=== PATIENT | female | born 1940 | race Caucasian/White ===

== ENCOUNTER 2019-03-14 19:42 | Observation (INO) ==
[2019-03-14] MEDS ORDERED: DUONEB (A & A) INH ONE (20:04)
[2019-03-14] MEDS ORDERED: LASIX IV ONE (20:05)
[2019-03-14] MEDS ORDERED: NITROGLYCERIN TOP ONE (20:08)
--- NOTE | 2019-03-14 20:29 | Diag Imaging Result Doc PS360 ---
EXAM: CHEST-PORTABLE HISTORY: pe TECHNIQUE: Chest single view COMPARISON: 01/07/2015 FINDINGS: Poor inspiratory effort. Heart is mildly enlarged. There are multiple calcified mediastinal and hilar lymph nodes similar to the prior exam. No consolidation. No pleural effusions identified. IMPRESSION: Mildly prominent heart Electronically signed by Christiano Malcolm 03/14/2019 8:27 PM
[2019-03-14 20:36] LABS: BASO# 0.04 X1000 (0.0-0.2); BASO% 0.4 % (0.0-0.8); EOS# 0.25 X1000 (0.0-0.7); EOS% 2.4 % (0.0-10.0); HEMATOCRIT 43.1 % (37.0-47.0); HEMOGLOBIN 14.4 g/dL (12.0-16.0); IMM GRAN# 0.01 X1000 (0.0-0.04); IMM GRAN% 0.1 % (0.0-0.5); LYMPH# 1.09 X1000 (1.2-3.4); LYMPH% 10.6 % (20.5-51.1); MCH 31.5 PG (27-31); MCHC 33.4 g/dL (33-37); MCV 94.3 FL (81-99); MONO# 0.83 X1000 (0.11-0.59); MONO% 8.1 % (1.7-9.3); NEUT# 8.08 X1000 (1.4-6.5); NEUT% 78.4 % (42.2-75.2); PLT 165 X1000 (130-400); RBC 4.57 XMIL (4.2-5.4); RDW 14.4 % (11.5-14.5)
[2019-03-14 20:58] LABS: AGAP 11; ALBUMIN 4.3 g/dL (3.5-5.0); ALKALINE PHOSPHATASE 63 U/L (32-104); BUN 14 mg/dL (8-22); CALCIUM 8.4 mg/dL (8.8-10.2); CHLORIDE 107 mmol/L (98-107); COSMO 286; CREATININE 0.5 mg/dL (0.5-0.9); ESTIMATED GFR > 60; GLUCOSE 148 mg/dL (70-104); GOT 26 U/L (10-30); GPT 24 U/L (10-36); MAGNESIUM 1.8 mg/dL (1.5-2.7); POTASSIUM 4.3 mmol/L (3.5-5.1); SODIUM 142 mmol/L (136-145); TCO2 24 mmol/L (25-35); TOTAL PROTEIN 7.7 g/dL (6.3-8.3)
[2019-03-14] MEDS ORDERED: ATIVAN PO ONE (21:22)
--- NOTE | 2019-03-14 22:21 | EKG Report ---
Test Performed on : 03/14/2019 7:52:52 PM Test Reason : sob Blood Pressure : / mmHG Vent. Rate : 107 BPM Atrial Rate : 107 BPM P-R Int : 000 ms QRS Dur : 090 ms QT Int : 386 ms P-R-T Axes : 000 056 064 degrees QTc Int : 515 ms Atrial fibrillation. with rapid ventricular response. Abnormal ECG When compared with ECG of 13-OCT-2013 13:45, Atrial fibrillation. has replaced Sinus rhythm. Vent. rate has increased BY 41 BPM Nonspecific T wave abnormality now evident in Lateral leads QT has lengthened Unconfirmed Result
[2019-03-14] MEDS ORDERED: BENADRYL IV ONE (23:21)
[2019-03-14 23:26] LABS: BILIRUBIN URINE NEGATIVE (NEGATIVE); BLOOD URINE NEGATIVE (NEGATIVE); CLARITY CLEAR (CLEAR); COLOR YELLOW; GLUCOSE URINE NEGATIVE (NEGATIVE); KETONE URINE NEGATIVE (NEGATIVE); LEUKOCYTES URINE NEGATIVE (NEGATIVE); NITRITE URINE NEGATIVE (NEGATIVE); PROTEIN URINE NEGATIVE (NEGATIVE); URINE BACTERIA NEGATIVE /HFP; URINE EPITHELIAL CELLS <10 /HPF (<10); URINE RBC <10 /HPF (<10); URINE SOURCE CATH; URINE WBC <10 /HPF (<10); UROBILINOGEN URINE NORMAL
--- NOTE | 2019-03-15 00:38 | EKG Report ---
Test Performed on : 03/14/2019 11:08:16 PM Test Reason : repeat Blood Pressure : / mmHG Vent. Rate : 101 BPM Atrial Rate : 101 BPM P-R Int : 152 ms QRS Dur : 090 ms QT Int : 384 ms P-R-T Axes : 061 071 074 degrees QTc Int : 497 ms Sinus tachycardia. Otherwise normal ECG When compared with ECG of 14-MAR-2019 19:52, (Unconfirmed) Sinus rhythm. has replaced Atrial fibrillation. Unconfirmed Result
[2019-03-15] MEDS ORDERED: LOVENOX 1 MG/KG SUBQ ONE (01:21)
--- NOTE | 2019-03-15 02:03 | PROVIDER DOCUMENTATION ---
This chart was entered by Mary Beth Olvera Scribe, acting as scribe for Ovidio Cerda MD. HPI-Respiratory General - General Chief Complaint: Shortness of Breath Stated Complaint: SOB Time Seen by Provider: 03/14/19 20:03 Source: patient Allergies/Adverse Reactions: Patient Allergies Allergy/AdvReac Type Severity Reaction Status Date / Time latex Allergy Severe SWELLING Verified 11/15/15 16:43 Sulfa (Sulfonamide Allergy Intermediate ITCHING Verified 11/15/15 16:43 Antibiotics) ciprofloxacin [From Cipro] Allergy Unknown Verified 11/15/15 16:43 ciprofloxacin HCl * Allergy Unknown Verified 11/15/15 16:43 [From Cipro] phenazopyridine HCl * Allergy RASH Verified 11/15/15 16:43 [From Pyridium] Home Medications: Home Medication List Medication Instructions Recorded Confirmed Last Taken Type Alprazolam [Xanax] 0.5 mg PO TID PRN 06/25/14 11/15/15 03/11/15 History Carvedilol [Coreg] 25 mg PO BID 06/25/14 11/15/15 03/11/15 History Duloxetine HCl [Cymbalta] 60 mg PO DAILY 06/25/14 11/15/15 03/11/15 History Esomeprazole Magnesium [Nexium] 40 mg PO DAILY 06/25/14 11/15/15 03/11/15 History Levothyroxine [Synthroid] 100 microgm PO DAILY 06/25/14 11/15/15 03/11/15 History Metformin HCl 500 mg PO BID 06/25/14 11/15/15 03/11/15 History Potassium Chloride Powder Pkt 20 meq PO DAILY 06/25/14 11/15/15 03/11/15 History [Klor-Con Powder Packet] Ropinirole HCl [Requip] 5 mg PO QHS 06/25/14 11/15/15 03/11/15 History Zolpidem [Ambien] 10 mg PO QHS 06/25/14 11/15/15 03/11/15 History Hydralazine [Apresoline] 50 mg PO TID 01/06/15 11/15/15 03/11/15 History Nisoldipine [Sular] 17 mg PO DAILY #0 01/10/15 11/15/15 03/11/15 Rx Hydrocodone/APAP 10 mg/325 mg 10 mg PO Q4H PRN 03/11/15 11/15/15 03/11/15 15:00 History [[place]-10] Na Phos,M-B/Na Phos,Di-Ba [Fleet 133 ml PA HS PRN PRN #3 enema 03/11/15 11/15/15 Unknown Rx Enema] Nitrofurantoin Monohyd/M-Cryst 100 mg PO BID #10 capsule 03/11/15 11/15/15 Unknown Rx [Macrobid 100 mg Capsule] Polyethylene Glycol 3350 [Miralax] 527 gm PO DAILY #1 powder 03/11/15 11/15/15 Unknown Rx - History of Present Illness-Resp Nature of Presenting Problem: 78 yof c/o sob x 2.5 hrs. pt was brought to er by son, pt was in [place] since and sym progressively became worse so came to er. pt has no o2, nebulizers at home. pt is on 3 L o2 and 97% sat in er. pt has elv bp 156/105 in er. pt is twitching and jerking in er. pt has hx of 2x cardiac cath (one in [place] and one in [facility]), thyroid disease, dm (takes metformin), and Htn (sular and coreg). pt has no admissions director. pt has no hx of sob but has had pneumonia, most rec in jul 2018. pt is a nonsmoker. denies nvd, and abd pain. Review of Systems - Adult - REVIEW OF SYSTEMS - ADULT Constitutional: reports: see HPI, other (twitching and jerking). denies: chills, fever, fatique Eyes: reports: no symptoms reported Ears, Nose, Mouth & Throat: reports: no symptoms reported Cardiovascular: reports: no symptoms reported. denies: poor circulation, PND, syncope Respiratory: reports: see HPI, shortness of breath, wheezing. denies: cough, excessive sputum production, hemoptysis Gastrointestinal: reports: no symptoms reported. denies: abdominal pain, diarrhea, nausea, vomiting Genitourinary: reports: no symptoms reported Musculoskeletal: reports: no symptoms reported Integumentary: reports: no symptoms reported Neurological: reports: no symptoms reported Psychiatric: reports: no symptoms reported Endocrine: reports: no symptoms reported Hematologic/Lymphatic: reports: no symptoms reported Allergic/Immunologic: reports: no symptoms reported All Other Systems: Reviewed and Negative Past History - Adult - PAST MEDICAL HISTORY-ADULT Review of Records: reports: Old Records Reviewed, Nursing Assessment Review, Medications Reviewed, Social history reviewed & non-contributory. Major Childhood Illnesses: reports: denies history Cardiovascular: reports: HTN Respiratory: reports: denies history Gastrointestinal: reports: denies history Obstetrical/Gynecological: reports: denies history Genitourinary: reports: kidney disease, chronic UTI's Musculoskeletal: reports: denies history Neurological: reports: denies history Endocrine/Immune: reports: Diabetes, thyroid disorder Diabetes controlled by:: PO Meds Other Conditions: reports: other (Renal Disease) - PRIOR SURGERIES/PROCEDURES Surgical/Procedure History: reports: hysterectomy - IMMUNIZATION STATUS Childhood Immunizations: See Nurse Assessment Flu Vaccine: See Nurse Assessment - FAMILY HISTORY Family History: reviewed, not pertinent - SOCIAL HISTORY Smoking: non-smoker Substance Use: none/never Physical Exam-General - PHYSICAL EXAM-ADULT Initial Vital Signs Reviewed: Yes - CONSTITUTIONAL General Appearance: alert, mild distress. negative: lethargic, slow to respond, obtunded - EYES Eyes: PERRL/EOMI, pink conjunctivae - HEAD, EARS, NOSE, MOUTH & THROAT HENMT: normocephalic/atraumatic, moist mucous membranes, normal ENT inspection - NECK Neck: non-tender, full range of motion, supple, normal inspection - RESPIRATORY Respiratory: chest non-tender, no pleuratic chest pain, respiratory distress, accessory muscle use, rales, wheezing (bilat), other (rattling rapid respirations). negative: lungs clear, normal breath sounds, no respiratory distress, no accessory muscle use, decreased breath sounds, stridor, dull on percussion, prolonged expiration, pain on inspiration, decreased rate - CARDIOVASCULAR Cardiovascular: normal peripheral pulses, tachycardia, other (afib rvr). negative: regular rate, rhythm, extra beats, friction rub, irregularly irregular - GASTROINTESTINAL (ABDOMEN) Abdominal Exam: normal bowel sounds, non tender, soft, no organomegaly, no pulsatile mass. negative: abdominal bruit, abnormal bowel sounds, distended - LYMPHATIC Lymphatic: no adenopathy - MUSCULOSKELETAL Back Exam: normal inspection, no CVA tenderness, no vertebral tenderness Extremity: normal range of motion, non-tender, pedal edema (pretibial edema 1+ bilat). negative: normal inspection, no pedal edema, deformity, erythema, pulse deficit Peripheral Pulses: dorsalis-pedis (R): 2+, dorsalis-pedis (L): 2+ - SKIN Integumentary: normal turgor, warm/dry, pallor. negative: normal color, purpura, tenderness, warm - NEUROLOGIC Neurologic: grossly normal, no motor/sensory deficits - PSYCHIATRIC Psych/Mental Status: normal mood/affect, normal thought content, normal thought process, oriented x 3 Progress - PLAN OF CARE/RESULTS Progress/Plan/Lab Results: Vital Signs - 8 hr 03/14/19 19:44 03/14/19 20:15 Temperature 98 F Pulse Rate 110 H 106 H Respiratory Rate 20 23 Blood Pressure 150/65 O2 Sat by Pulse Oximetry 91 L 100 Laboratory Results - last 24 hr 03/14/19 03/14/19 03/14/19 20:20 20:20 20:20 WBC 10.30 RBC 4.57 Hgb 14.4 Hct 43.1 MCV 94.3 MCH 31.5 H MCHC 33.4 RDW Std Deviation 14.4 Plt Count 165 MPV 12.0 H Immature Gran % (Auto) 0.1 Neut % (Auto) 78.4 H Lymph % (Auto) 10.6 L Vance % (Auto) 8.1 Eos % (Auto) 2.4 Baso % (Auto) 0.4 Immature Gran # (Auto) 0.01 Neut # (Auto) 8.08 H Lymph # (Auto) 1.09 L Vance # (Auto) 0.83 H Eos # (Auto) 0.25 Baso # (Auto) 0.04 D-Dimer, Quantitative Sodium Potassium Chloride Carbon Dioxide Anion Gap BUN Creatinine Estimated GFR/1.73 m2 BUN/Creatinine Ratio Glucose Calculated Osmolality Calcium Magnesium Total Bilirubin AST ALT Alkaline Phosphatase Creatine Kinase 64 Troponin T < 0.010 Lvm-Y-Gybmlzidvon Pept Total Protein Albumin Globulin Albumin/Globulin Ratio Urine Source Urine Color Urine Clarity Urine pH Ur Specific [place] Urine Protein Urine Ketones Urine Blood Urine Nitrite Urine Bilirubin Urine Urobilinogen Urine Microscopic RBC Urine WBC Urine Microscopic WBC Ur Epithelial Cells Urine Bacteria Urine Glucose 03/14/19 03/14/19 03/14/19 20:20 20:20 20:20 WBC RBC Hgb Hct MCV MCH MCHC RDW Std Deviation Plt Count MPV Immature Gran % (Auto) Neut % (Auto) Lymph % (Auto) Vance % (Auto) Eos % (Auto) Baso % (Auto) Immature Gran # (Auto) Neut # (Auto) Lymph # (Auto) Vance # (Auto) Eos # (Auto) Baso # (Auto) D-Dimer, Quantitative 1.00 H Sodium 142 Potassium 4.3 Chloride 107 Carbon Dioxide 24 L Anion Gap 11 BUN 14 Creatinine 0.5 Estimated GFR/1.73 m2 > 60 BUN/Creatinine Ratio 28 Glucose 148 H Calculated Osmolality 286 Calcium 8.4 L Magnesium 1.8 Total Bilirubin 0.20 AST 26 ALT 24 Alkaline Phosphatase 63 Creatine Kinase Troponin T Zbt-Q-Jtjeqwookvn Pept 555 H Total Protein 7.7 Albumin 4.3 Globulin 3.0 Albumin/Globulin Ratio 1.0 Urine Source Urine Color Urine Clarity Urine pH Ur Specific [place] Urine Protein Urine Ketones Urine Blood Urine Nitrite Urine Bilirubin Urine Urobilinogen Urine Microscopic RBC Urine WBC Urine Microscopic WBC Ur Epithelial Cells Urine Bacteria Urine Glucose 03/14/19 03/14/19 03/14/19 20:20 23:00 23:00 WBC RBC Hgb Hct MCV MCH MCHC RDW Std Deviation Plt Count MPV Immature Gran % (Auto) Neut % (Auto) Lymph % (Auto) Vance % (Auto) Eos % (Auto) Baso % (Auto) Immature Gran # (Auto) Neut # (Auto) Lymph # (Auto) Vance # (Auto) Eos # (Auto) Baso # (Auto) D-Dimer, Quantitative Sodium Potassium Chloride Carbon Dioxide Anion Gap BUN Creatinine Estimated GFR/1.73 m2 BUN/Creatinine Ratio Glucose Calculated Osmolality Calcium Magnesium Total Bilirubin AST ALT Alkaline Phosphatase Creatine Kinase 63 Troponin T 0.061 D Nbe-S-Oxzwxvubumz Pept Total Protein Albumin Globulin Albumin/Globulin Ratio Urine Source CATH Urine Color YELLOW Urine Clarity CLEAR Urine pH 5.0 Ur Specific [place] 1.010 Urine Protein NEGATIVE Urine Ketones NEGATIVE Urine Blood NEGATIVE Urine Nitrite NEGATIVE Urine Bilirubin NEGATIVE Urine Urobilinogen NORMAL Urine Microscopic RBC <10 Urine WBC NEGATIVE Urine Microscopic WBC <10 Ur Epithelial Cells <10 Urine Bacteria NEGATIVE Urine Glucose NEGATIVE Orders Category Date Time Status [place] Cath Insertion ORDERED Care 03/14/19 20:33 Active CHEST-PORTABLE [RAD] Stat Exams 03/14/19 20:07 Completed CBC WITH DIFF [HEME] Stat Lab 03/14/19 20:20 Completed CK PROFILE [SP CHEM] Stat Lab 03/14/19 20:20 Completed CK PROFILE [SP CHEM] Stat Lab 03/14/19 23:00 Completed COMPREHENSIVE METABOLIC PANEL [CHEM] Stat Lab 03/14/19 20:20 Completed D-DIMER [COAG] Stat Lab 03/14/19 20:20 Completed MAGNESIUM [CHEM] Stat Lab 03/14/19 20:20 Completed PRO B-NATRIURETIC PEPTIDE Stat Lab 03/14/19 20:20 Completed TROPONIN T Stat Lab 03/14/19 20:20 Completed TROPONIN T Stat Lab 03/14/19 23:00 Completed ua [URINALYSIS PL W/POSS RFLX CULT] [URINALYSIS] Stat Lab 03/14/19 20:20 Completed Albuterol 2.5MG/Ipratrop 0.5MG [Duoneb (A & A)] Med 03/14/19 20:04 Discontinued 3 ml INH NOW ONE Diphenhydramine [Benadryl] Med 03/14/19 23:21 Discontinued 25 mg IV NOW ONE Enoxaparin 1 mg/kg [Lovenox 1 mg/kg] Med 03/15/19 01:21 Discontinued 70 each SUBQ NOW ONE Furosemide [Lasix] Med 03/14/19 20:05 Discontinued 40 mg IV NOW ONE Lorazepam [Ativan] Med 03/14/19 21:22 Discontinued 1 mg PO NOW ONE Nitroglycerin Med 03/14/19 20:08 Discontinued 1 inch TOP NOW ONE Aerosol Treatments Routine Oth 03/14/19 20:05 Completed Aerosol Treatments Stat Oth 03/14/19 20:05 Completed EKG [EKG] Stat Ther 03/14/19 19:53 Draft EKG [EKG] Stat Ther 03/14/19 22:59 Draft Transfer/Admit Order [TRANSFER] Routine Transfer 03/15/19 01:14 Ordered Result Diagrams: 03/14/19 20:20 03/14/19 20:20 - REASSESSMENT Reassessment #1 Time Reassessed: 00:57 (pt was given benadryl for twitching and jerking and became better. poss serotonin syndrome ) Status: improving - EKG 1 Time of EKG reading by physician:: 19:52 EKG Read and Signed by:: Ovidio Cerda EKG Interpretation (*Must complete 3 of following elements*): Abnormal Rate: 107 Rhythm: sinus tachy w/ pac possibly rapid afib [place]: normal QRS: normal 2 Time of EKG reading by physician:: 23:08 EKG Read and Signed by:: Ovidio Cerda EKG Interpretation (*Must complete 3 of following elements*): Abnormal Rate: 101 Rhythm: ST [place]: normal QRS: normal PA Interval: normal Departure - Departure Date of Disposition Decision: 03/15/19 Time of Disposition Decision: 02:01 DIAGNOSIS: Dyspnea, Muscle spasm of both lower legs, Elevation of cardiac enzymes Disposition: ADMITTED INPATIENT 09 Certified Medical Emergency: Emergent Condition: Stable Referrals and Follow-Ups: Eduin Hernandez MD [Primary Care Provider] - - Critical Care Note This patient required my direct & personal management of CC.: No Attestation - Physician/ ИВАН Attestation Patient care was provided by Advanced Practice Provider:: No The physician spent face to face time with patient:: Yes Advanced Practice Provider documentation review:: Supervising physician onsite and consulted in the evaluation and care of this patient. The physician did have a face to face encounter with the patient. This chart was documented by the indicated scribe, (Mary Beth Olvera Scribe) and accurately reflects the services I performed and decisions made by me, Ovidio Cerda MD, as attested by the provider's signature.
[2019-03-15] MEDS ORDERED: LOVENOX ONE (02:23)
[2019-03-15] MEDS ORDERED: NS 1,000 ML IV ONE (02:26)
[2019-03-15] MEDS ORDERED: TYLENOL PO PRN (03:25)
--- NOTE | 2019-03-15 05:56 | EKG Report ---
Test Performed on : 03/15/2019 03:36:57 AM Test Reason : emboli Blood Pressure : / mmHG Vent. Rate : 084 BPM Atrial Rate : 084 BPM P-R Int : 168 ms QRS Dur : 100 ms QT Int : 426 ms P-R-T Axes : 051 068 080 degrees QTc Int : 503 ms Normal sinus rhythm. Prolonged QT Abnormal ECG When compared with ECG of 14-MAR-2019 23:08, (Unconfirmed) No significant change was found Unconfirmed Result
[2019-03-15] MEDS ORDERED: LASIX IV SCH (09:00)
[2019-03-15 09:06] LABS: INR 1.04; PROTIME 14.1 Seconds (11.0-16.0)
[2019-03-15 09:15] LABS: HEMOGLOBIN A1C 5.6 % (4.8-6.0)
[2019-03-15] MEDS: ASPIRIN PO SCH (09:17)
[2019-03-15 09:45] LABS: I-STAT BE 3 mmoll (-2-3); I-STAT GLUCOSE 133 mg/dL (70-105); I-STAT HEMOGLOBIN 12.6 g/dL (11.5-17.5); I-STAT K 3.5 mmoll (3.5-4.9); I-STAT TCO2 28 mmoll (23-27); I-STAT pH 7.426 (7.350-7.450)
[2019-03-15] MEDS: HUMULIN R (PARKWAY) SUBQ SCH ×3 (10:12→21:00)
[2019-03-15 10:39] LABS: MAGNESIUM 1.9 mg/dL (1.5-2.7)
[2019-03-15 10:42] LABS: AGAP 12; BUN 13 mg/dL (8-22); CALCIUM 8.1 mg/dL (8.8-10.2); CHLORIDE 108 mmol/L (98-107); CK PROFILE 131 U/L (24-173); COSMO 291; CREATININE 0.4 mg/dL (0.5-0.9); ESTIMATED GFR > 60; GLUCOSE 139 mg/dL (70-104); POTASSIUM 3.7 mmol/L (3.5-5.1); SODIUM 145 mmol/L (136-145); TCO2 26 mmol/L (25-35)
--- NOTE | 2019-03-15 11:18 | Diag Imaging Result Doc PS360 ---
EXAM: CT HEAD W/O CONTRAST INDICATION: confusion TECHNIQUE: This exam was performed using automated exposure control, adjustment of mA or kV according to patient size, and/or use of iterative reconstruction technique. COMPARISON: 11/15/2015 FINDINGS: There is stable diffuse brain atrophy. 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 There is patchy low attenuation in the periventricular and subcortical white matter suggesting mild microangiopathy, stable. There is a tiny chronic lacunar infarct adjacent to the left caudate head that has developed during the interval. There is no definite acute infarct given the limited sensitivity of CT versus MRI. There is no discrete intracranial mass, mass effect, or intracranial hemorrhage. The surrounding soft tissues and bony structures are essentially unremarkable. IMPRESSION: Chronic appearing changes as described. No evidence of acute intracranial pathology by CT. Electronically signed by Kirk Olvera 03/15/2019 11:15 AM
--- NOTE | 2019-03-15 11:30 | Diag Imaging Result Doc PS360 ---
EXAM: CT ANGIOGRM PULMONARY ARTERIES INDICATION: dyspnea, tachycardia, elevated DDimer TECHNIQUE: This exam was performed using automated exposure control, adjustment of mA or kV according to patient size, and/or use of iterative reconstruction technique. Thin section axial images and 3-D MIPS were obtained. COMPARISON: CT chest without contrast dated 08/28/2016 FINDINGS: There is no evidence of pulmonary embolism. There is moderate thoracic aortic atherosclerotic disease. There is no evidence of thoracic aortic aneurysm or dissection. There is cardiomegaly. There are multiple bulky calcified mediastinal and hilar lymph nodes indicating prior granulomatous disease. There is diffuse mild mosaic attenuation throughout both lungs that likely represent hypoventilatory changes versus very mild edema. It is actually very similar to the previous study in 2016. There is a more dense focal consolidation involving the right middle lobe that could represent focal pneumonia, however. Please correlate clinically. There is a trace right pleural effusion and minimal right basilar atelectasis. Limited views of the upper abdomen reveals renal cortical scarring on the left. A left renal artery stent is noted. IMPRESSION: 1.Mild mosaic attenuation throughout both lungs suggesting hypoventilatory changes or perhaps very mild edema. 2.Small focus of more dense consolidation in the right middle lobe. Focal pneumonia cannot be excluded. Please correlate clinically. 3.Trace right pleural effusion. 4.Cardiomegaly. 5.No evidence of pulmonary embolism. 6.Other incidental/nonacute findings detailed above. Electronically signed by Kirk Olvera 03/15/2019 11:27 AM
[2019-03-15] MEDS ORDERED: DUONEB (A & A) INH PRN (12:26)
[2019-03-15] MEDS ORDERED: ZOFRAN IV PRN (12:26)
[2019-03-15] MEDS ORDERED: KLOR-CON PO ONE (12:28)
[2019-03-15] MEDS ORDERED: ROCEPHIN 1 GM in NS 50 ML IV SCH (12:30)
[2019-03-15] MEDS ORDERED: GLUCOPHAGE PO SCH (12:30)
[2019-03-15] MEDS: SYNTHROID PO SCH (12:43)
[2019-03-15] MEDS: DOXYCYCLINE PO SCH ×2 (12:43→21:03)
[2019-03-15] MEDS: NORCO-10 PO PRN ×2 (12:45→21:03)
[2019-03-15] MEDS: XANAX PO PRN ×2 (12:46→21:04)
--- NOTE | 2019-03-15 13:55 | HISTORY AND PHYSICAL ---
PRIMARY CARE PHYSICIAN: Dr. Eduin Hernandez CHIEF COMPLAINT: Dyspnea. HISTORY OF PRESENT ILLNESS: Ms. Cedeño is a 78-year-old female with a history of type 2 diabetes, depression, gastroesophageal reflux disease, anxiety, hypothyroidism, and diagnosis of pneumonia earlier this year, who presents to our ER last night with profound hypoxia, dyspnea, chest discomfort and confusion. Ms. Cedeño reports that she was in [place] over the weekend for a relative's graduation from pharmacy school. She started to feel unwell on Saturday, essentially some mild shortness of breath and malaise. On Saturday, she was confused and a bit more short of breath and apparently went back to her hotel room and slept for a while and then proceeded with the weekend's events. She reports that as they were getting ready to come home from [place], she checked her pulse oximetry which she apparently has with her, and it measured 82%. Interestingly enough, that did not prompt an immediate ER visit in [place]. She drove home, and by the time she got to the [place] area, she was very dyspneic, clutching her chest, with some mild chest pain and confused. She eventually made the decision to come to [facility]. She had low O2 saturations, but EKG and laboratory data were essentially unremarkable. Chest x- ray did show mildly prominent heart but nothing really acute. She was admitted to the ICU for hypoxic respiratory failure. This morning, we looked at her D-dimer, and it was found to be elevated, so we proceeded with a CTA of the chest which showed mosaic attenuation through the lungs suggesting hypoventilatory changes or perhaps mild edema. A small focus of consolidation was noted in the right middle lobe. Focal pneumonia could not be ruled out. There was trace effusion on the right and cardiomegaly. We did a head CT as well which showed incidental congenital jolynn cisterna magna. On physical exam, she is volume overloaded. She has some mild lower extremity edema and JVD. We did review previous visits, and she had an echocardiogram in 2014 that showed fairly severe pulmonary hypertension with PA systolic pressure of 73 and moderate TR. She has been admitted to our ICU for further treatment and evaluation. PAST MEDICAL HISTORY: 1. Hypertension. 2. Depression. 3. Anxiety. 4. Chronic pain. 5. Insomnia. 6. GERD. 7. Diabetes mellitus type 2. 8. Hypothyroidism. PAST SURGICAL HISTORY: Partial thyroidectomy, hysterectomy, right elbow surgery, bilateral carpal tunnel release, ovarian cyst, femoral artery surgery. SOCIAL HISTORY: She is recently . She denies alcohol, tobacco or drug use. She has close family, but they are currently not at her bedside. FAMILY HISTORY: Noncontributory. REVIEW OF SYSTEMS: A 14-point review of systems was obtained and found to be negative with the exception of the HPI. ALLERGIES: Latex, sulfa, ciprofloxacin, Pyridium. HOME MEDICATIONS: Xanax 0.5 mg p.o. t.i.d. as needed, Coreg 25 mg b.i.d., Cymbalta 60 mg daily, Nexium 40 mg daily, Apresoline 50 mg t.i.d., Lares 10 one p.o. q.4 hours, Synthroid 100 mcg daily, metformin 500 mg p.o. b.i.d., Sular 17 g daily, ropinirole 5 mg at bedtime, Klor-Con 20 mEq p.o. daily. PHYSICAL EXAMINATION: VITAL SIGNS: Blood pressure is 165/66, heart rate is 80, respiratory rate 19, O2 saturation is 98% on 2 L nasal cannula, temperature is 98.5. GENERAL: This is an obese female lying in hospital bed in no acute distress. NEUROLOGICAL: The patient is somewhat lethargic. She is awake, but she has just a little bit of difficulty with orientation questions but does answer them correctly. No focal deficits noted. HEENT: Head is atraumatic and normocephalic. Pupils are equal, round and reactive to light. Oral mucosa is moist. NECK: Trachea is midline. There is fairly significant JVD at 45 degrees. CHEST: Crackles through the right middle lung and lung base. CARDIOVASCULAR: Regular rate. S1 and S2 noted. GASTROINTESTINAL: Soft, nondistended and nontender. Bowel sounds positive. EXTREMITIES: Plus 1 edema bilaterally. DIAGNOSTIC DATA: Head CT with chronic changes, nothing acute. CTA of the chest with right middle lobe infiltrate, possible pulmonary edema, trace right pleural effusion. EKG is normal sinus rhythm with nonspecific ST and T changes. WBC is 10.3, hemoglobin 14.4, hematocrit 43.1, platelet count 165. INR is 1.04. D-dimer is 1. ABG on nasal cannula shows pH of 7.426, CO2 of 41, O2 of 77, bicarb 27.1. Sodium is 145, potassium 3.7, chloride 108, CO2 is 26, anion gap 12, BUN is 13, creatinine 0.4, glucose 139, calcium 8.1. Troponin negative x4 sets. TSH is 2.97, free T4 is 1.33. UA is negative. ASSESSMENT AND PLAN: 1. Acute hypoxemic respiratory failure. It would appear that the patient has congestive heart failure and possibly pneumonia. She has been given Lasix. We will check an echocardiogram and start her on antibiotics given her CTA. We will continue to trend her enzymes and make sure she is on aspirin and keep her on supplemental O2 and aggressive pulmonary toilet. 2. Congestive heart failure. Possibly due to right heart failure, cor pulmonale, pulmonary hypertension. We will continue diuresis, strict I's and O's, daily weights. Trend enzymes. Check echocardiogram. 3. Questionable pneumonia. She has been placed on antibiotics, breathing treatments and oxygen. 4. Diabetes mellitus. We will continue pattern sugars and sliding scale insulin. Hemoglobin A1c is 5.6. 5. Anxiety and depression. We will be mindful of her respiratory failure. She is on quite a few sedating medications which could certainly be contributing to hypoxia. 6. DVT prophylaxis. The patient was given a full dose of Lovenox last night in the ER for possible presumption of PE. We will start DVT prophylaxis dosed Lovenox tomorrow. Further recommendations to follow. Dictated by TONNY Su for Lewis Hutson MD cc: TONNY Su MD
--- NOTE | 2019-03-15 16:32 | Extremity Venous Study ---
EXAM: Venous U/S Bilateral Legs INDICATION: r/o dvt TECHNIQUE: COMPARISON: 11/19/2014 FINDINGS: There are no discrete filling defects and there is normal Doppler flow, compressibility, and augmentation involving the deep venous systems of the left and right lower extremities. The great saphenous veins are also grossly patent. IMPRESSION: No evidence of DVT. Electronically signed by Kirk Olvera 03/15/2019 4:30 PM
--- NOTE | 2019-03-15 17:39 | HISTORY AND PHYSICAL ---
ADDENDUM: Patient seen and examined by myself. Full note dictated and discussed with the nurse practitioner. Patient presented to the ER with symptoms of shortness of breath and hypoxic respiratory failure. She actually had been out of town for the past 3 days due to a niece's graduation from pharmacy school. She apparently checks her oxygen on a regular basis as she had been hypoxic in the past due to pneumonia. This time she noted that during the week her O2 saturations were fine. However, yesterday her O2 saturations were in the low 80s and she felt tired, confused, and had some episodes of confusion noted by her son. Therefore, they brought her to the ER. Currently, she is awake, alert, appears oriented. She is on oxygen. We will admit her to the hospital, place her on breathing treatments. Will workup her hypoxic failure with a CT and will follow. Please see full note. cc: Lewis Hutson MD
[2019-03-15] MEDS ORDERED: CARDIZEM 100 MG/NS 100 MG/100 ML IVPB IV SCH (18:45)
[2019-03-16] MEDS: NORCO-10 PO PRN (04:49)
[2019-03-16] MEDS: XANAX PO PRN (04:50)
[2019-03-16 05:43] LABS: BASO# 0.05 X1000 (0.0-0.2); BASO% 0.7 % (0.0-0.8); EOS# 0.23 X1000 (0.0-0.7); EOS% 3.1 % (0.0-10.0); HEMATOCRIT 40.4 % (37.0-47.0); HEMOGLOBIN 13.3 g/dL (12.0-16.0); IMM GRAN# 0.02 X1000 (0.0-0.04); IMM GRAN% 0.3 % (0.0-0.5); LYMPH# 1.46 X1000 (1.2-3.4); LYMPH% 19.4 % (20.5-51.1); MCH 31.4 PG (27-31); MCHC 32.9 g/dL (33-37); MCV 95.3 FL (81-99); MONO# 0.82 X1000 (0.11-0.59); MONO% 10.9 % (1.7-9.3); MPV 11.6 FL (7.4-10.4); NEUT# 4.96 X1000 (1.4-6.5); NEUT% 65.6 % (42.2-75.2); PLT 165 X1000 (130-400); RBC 4.24 XMIL (4.2-5.4); RDW 14.6 % (11.5-14.5); WBC 7.54 X1000 (4.8-10.8)
[2019-03-16 05:49] LABS: AGAP 9; BUN 12 mg/dL (8-22); CALCIUM 8.2 mg/dL (8.8-10.2); CHLORIDE 105 mmol/L (98-107); COSMO 285; CREATININE 0.4 mg/dL (0.5-0.9); ESTIMATED GFR > 60; GLUCOSE 134 mg/dL (70-104); POTASSIUM 3.6 mmol/L (3.5-5.1); SODIUM 142 mmol/L (136-145); TCO2 28 mmol/L (25-35)
[2019-03-16] MEDS: HUMULIN R (PARKWAY) SUBQ SCH ×2 (05:59→11:17)
[2019-03-16] MEDS: SYNTHROID PO SCH (06:11)
[2019-03-16] MEDS ORDERED: NEXIUM PO SCH (07:00)
[2019-03-16] MEDS ORDERED: LOVENOX SUBQ SCH (08:00)
[2019-03-16] MEDS: ASPIRIN PO SCH (08:42)
[2019-03-16] MEDS: DOXYCYCLINE PO SCH (08:42)
[2019-03-16] MEDS ORDERED: ROCEPHIN 2 GM in NS 50 ML IV SCH (09:00)
[2019-03-16] MEDS ORDERED: CYMBALTA PO SCH (09:00)
--- NOTE | 2019-03-16 09:54 | ECHO REPORT ---
ORDER DATE: 03/15/2019 ECHOCARDIOGRAPHIC MEASUREMENTS: 1. Interventricular septum 1.2. 2. Left ventricular posterior wall 1.2. 3. Diastolic diameter 4.2. 4. Left atrium 3.8. 5. Aorta 2.7. SUMMARY OF 2-DIMENSIONAL IMAGIN. The aortic valve leaflets were sclerosed, trileaflet, opening normally. Pulmonic valve is normal. There is trace pulmonary regurgitation. There is mild left atrial enlargement. 2. There is mild mitral regurgitation. Mild tricuspid regurgitation. Peak velocity across the tricuspid valve is 3.7 m/sec. Pulmonary artery systolic pressure of 65 mmHg. Peak velocity across the aortic valve less than 2 m/sec. There is no aortic stenosis. There is mild aortic regurgitation. Normal left ventricular cavity size. Mild left ventricular hypertrophy. Estimated ejection fraction of 60-65%. 3. There is mild tricuspid regurgitation. 4. There is no pericardial effusion or obvious intracardiac mass or thrombus. cc: MD Catracho Becerril CRNP Gregory S. Cheatham, MD
[2019-03-16 11:30] VITALS: BP 161/70
--- NOTE | 2019-03-16 21:06 | DISCHARGE SUMMARY ---
ADMISSION DATE: 03/15/2019 DISCHARGE DATE: 03/16/2019 ADMISSION DIAGNOSES: 1. Acute hypoxemic respiratory failure. 2. Congestive heart failure. 3. Questionable pneumonia. 4. Diabetes mellitus type 2. 5. Anxiety and depression. DISCHARGE DIAGNOSES: 1. Acute hypoxemic respiratory failure, resolved. Received Lasix and supplemental oxygen. 2. Congestive heart failure, possibly due to right-sided heart failure, cor pulmonary and pulmonary hypertension. Had an echocardiogram performed, which showed some mild left ventricular hypertrophy but ejection fraction was 60-65% and there was some pulmonary hypertension with a pulmonary artery systolic pressure of 65 mmHg. 3. Questionable pneumonia. Patient is going to go home on amoxicillin clavulanate 875 mg p.o. every 12 hours, essentially Augmentin. That will be for 10 days. 4. Diabetes mellitus type 2, stable. 5. Anxiety and depression, resolved after respiratory improvement. HOSPITAL COURSE: On 03/14/2019, late that evening, the patient was seen here at [facility]. By the next morning, was called for admission and was fully dictated on by the . Apparently she came in with a complaint of profound hypoxia, dyspnea, chest discomfort and confusion. Apparently she was in [place] over the weekend for a relative's graduation from pharmacology school. She was feeling unwell Saturday and had some shortness of breath and malaise. She continued with the whole weekend's events. On the way home, she checked her O2 saturation, which was 82%. Surprisingly, they did not go to the ER in [place] for this; she went ahead and went home. She kept continuing to become dyspneic, mild chest pain and confusion and that is when she was brought here. She showed some hypoxemic respiratory failure. She did have an elevated D- dimer. Chest CTA performed showed mosaic attenuation through the lungs suggesting hypoventilatory changes, some mild edema, some consolidation in the right middle lobe. Physical exam revealed volume overload with edema and JVD. She still continued to have severe pulmonary systolic hypertension. She was transferred to the ICU for closer observation and was placed on oxygen, pulmonary toilet. She was given Lasix. By the next morning, she was weaned down to room air, sitting comfortably and eating. She had already been initiated on antibiotics. She is being sent home with Augmentin. She is stable. DISCHARGE VITAL SIGNS: Temperature 97.5 degrees, heart rate 93, respiratory rate 24, blood pressure 161/70, oxygen saturation 96% on room air. DISCHARGE LABORATORY DATA: White blood cell count 7000, hemoglobin 13, hematocrit 40, platelet count 165. Sodium 142, potassium 3.6, BUN 12, creatinine 0.4, glucose 134, calcium 8.2, magnesium 1.9. PERTINENT IMAGING: On 03/14/2019, chest x-ray showed mild prominent heart. On 03/15/2019, she had a pulmonary arteriogram that showed mild mosaic attenuation throughout both lungs suggesting hypoventilatory changes, perhaps very mild edema. There is dense consolidation in the right middle lobe, trace right pleural effusion, cardiomegaly. Did not show a pulmonary embolism. She had a head CT because of mild confusion, which just showed some chronic changes but no acute findings. She had an echocardiogram that showed a normal ejection fraction of 60-65% but it show some pulmonary hypertension of systolic pulmonary hypertension at 65 mmHg. On 03/15/2019, she also had an extremity ultrasound of the legs due to edema and elevated D-dimer and it was negative for DVT. EKG showed normal sinus rhythm and prolonged QTC at 503; rate was at 84. DISCHARGE DIET: Heart Healthy diet. DISCHARGE ACTIVITY: As tolerated. DISCHARGE MEDICATIONS: 1. Requip 5 mg p.o. nightly. 2. Apresoline 50 mg p.o. t.i.d. 3. Coreg 25 mg p.o. twice daily. 4. Cymbalta 60 mg p.o. daily. 5. Potassium chloride 20 mEq p.o. daily. 6. Metformin 500 mg p.o. twice daily. 7. Nexium 40 mg p.o. daily. 8. Reynolds 10 mg, one tab q.4h p.r.n. 9. Synthroid 100 mcg p.o. daily. 10.Xanax 0.5 mg p.o. t.i.d. p.r.n. 11.Augmentin 875 mg p.o. q.12h for 10 days. 12.Ventolin inhaled q.4h p.r.n. DISCHARGE FOLLOWUP: With primary care provider, Dr. Eduin Hernandez. DISCHARGE INSTRUCTIONS: Activity - no driving while taking pain medications. Follow up with Dr. Hernandez in 1 to 2 weeks. If your condition changes, contact your physician and/or return to the Emergency Department. Changes may include but are not limited to shortness of breath, increased fatigue, excessive bleeding, unexplained weight loss or gain, unimaginable pain, signs or symptoms of infection. DISCHARGE DISPOSITION: Home. Dictated by TONNY Sanchez for Fortunato Contreras MD Addendum: Patient seen and examined by myself. Agree with TONNY note. It reflects my assessment and plan. Patient is being discharged from hospital in stable condition. cc: TONNY Sanchez MD Gregory S. Cheatham, MD [facility]
== END 2019-03-16 11:55 | disposition home or self-care (01) ==
LOC: P.ED 19:42 → P.ICU 19:42 → SUATTDRO 03-15 02:07
PROVIDERS: ADMIT Family Medicine; ATTEND Internal Medicine
CPT/HCPCS: 36415; 51702; 70450; 71010; 71045; 71275; 80048; 80053; 81001; 82330; 82550; 82746; 82947; 82948; 83036; 83735; 83880; 84100; 84132; 84295; 84439; 84443; 84484; 85014; 85018; 85025; 85379; 85610; 93005; 93306; 93970; 94640; 94761; 96372; 96374; 96375; 99285; A9270; J0696; J1200; J1650; J1815; J1940; Q9967; XXXXX